=== PATIENT | male | born 1940 | race African-American/Black ===

== ENCOUNTER 2018-08-19 06:58 | Emergency (ER) | payer OTHER ==
[~2018-08-19] VITALS: Ht 177.8 cm; Wt 72.7 kg
[2018-08-19 08:14] VITALS: BP 140/84
[2018-08-19 08:34] LABS: APPEARANCE,URINE CLEAR (CLEAR); BILIRUBIN,URINE NEGATIVE (NEGATIVE); GLUCOSE, URINE (UA) NEGATIVE (NEGATIVE); KETONES,URINE NEGATIVE (NEGATIVE); LEUKOCYTE ESTERASE ,URINE NEGATIVE (NEGATIVE); NITRATE,URINE NEGATIVE (NEGATIVE); OCCULT BLOOD,URINE LARGE (NEGATIVE); PH,URINE 5.5 (5.0-8.0); PROTEIN,URINE NEGATIVE (NEGATIVE); UROBILINOGEN,URINE 0.2 mg/dL (<=1.0)
[2018-08-19 08:44] LABS: BACTERIA,URINE Rare /HPF (None Seen); SQUAMOUS EPITHELIAL CELL,UR Few /LPF (None Seen); WBC,URINE 0-2 /HPF (0-5)
== END 2018-08-19 09:12 | disposition home or self-care (01) ==
LOC: EMS 06:58
DX: R33.9 Retention of urine, unspecified (principal); F17.210 Nicotine dependence, cigarettes, uncomplicated
CPT/HCPCS: 51702

== ENCOUNTER 2018-08-24 10:46 | Emergency (ER) | payer OTHER ==
[~2018-08-24] VITALS: Ht 180.3 cm; Wt 77.3 kg
[2018-08-24 12:09] LABS: APPEARANCE,URINE CLOUDY (CLEAR); GLUCOSE, URINE (UA) NEGATIVE (NEGATIVE); KETONES,URINE TRACE mg/dL (NEGATIVE); LEUKOCYTE ESTERASE ,URINE SMALL (NEGATIVE); NITRATE,URINE NEGATIVE (NEGATIVE); OCCULT BLOOD,URINE LARGE (NEGATIVE); PROTEIN,URINE SEE CONFIRM (NEGATIVE)
[2018-08-24 12:11] LABS: BILIRUBIN,URINE PRELIM. POSITIVE (NEGATIVE)
[2018-08-24 12:13] LABS: SULFOSALICYLIC ACID,URINE 3+ (Negative)
[2018-08-24 12:14] LABS: BACTERIA,URINE None Seen /HPF (None Seen); RBC,URINE >100 /HPF (0-2); SQUAMOUS EPITHELIAL CELL,UR Few /LPF (None Seen)
[2018-08-24 12:16] LABS: BASOPHILS % (AUTO) 1.5 % (0.0-2.0); EOSINOPHILS % (AUTO) 3.5 % (1.0-6.0); HEMOGLOBIN 15.6 g/dL (13.5-17.5); LYMPHOCYTES # (AUTO) 1.3 K/uL (1.0-4.8); LYMPHOCYTES % (AUTO) 26.1 % (22.0-44.0); MEAN CORPUSCULAR HEMOGLOBIN 31.6 pg (26.0-34.0); MEAN CORPUSCULAR HGB CONC 33.9 G/dL (31.0-37.0); MEAN CORPUSCULAR VOLUME 93 fL (80-100); MONOCYTES # (AUTO) 0.4 K/uL (0.1-1.0); MONOCYTES % (AUTO) 7.3 % (2.0-9.0); NEUTROPHILS # (AUTO) 3.1 K/uL (1.8-7.7); NEUTROPHILS % (AUTO) 61.6 % (40.0-70.0); PLATELET COUNT (AUTO) 296 K/uL (150-450); RED BLOOD CELL COUNT(AUTO) 4.95 MIL/uL (4.50-5.90)
[2018-08-24] MEDS ORDERED: TraMADol HCL 50 MG TABLET PO ONE (12:30)
[2018-08-24 12:36] LABS: ANION GAP 5 mmol/L (8-16); CALCIUM, TOTAL 9.1 mg/dL (8.8-10.5); CARBON DIOXIDE 32 mmol/L (22-29); CHLORIDE 105 mmol/L (98-107); CREATININE 0.98 mg/dL (0.60-1.30); GLUCOSE,RANDOM 127 mg/dL (70-110); POTASSIUM 3.9 mmol/L (3.5-5.1); SODIUM SERUM 142 mmol/L (136-145); UREA NITROGEN, BLOOD 8 mg/dL (7-18)
[2018-08-24 12:37] LABS: GLOMERULAR FILTR. RATE CALC > 60 mL/min (>60)
[2018-08-24 12:39] LABS: ALANINE AMINOTRANSFERASE 22 U/L (12-78); ALBUMIN 3.3 g/dL (3.4-5.0); ALKALINE PHOSPHATASE 81 U/L (46-116); ASPARTATE AMINOTRANSFERASE 20 U/L (15-37); BILIRUBIN,TOTAL 0.5 mg/dL (0.1-1.0); TOTAL PROTEIN, SERUM 7.1 g/dL (6.4-8.2)
[2018-08-24 13:09] VITALS: BP 132/64
== END 2018-08-24 13:13 | disposition home or self-care (01) ==
LOC: EMS 10:47
DX: Z46.6 Encounter for fitting and adjustment of urinary device (principal); R33.9 Retention of urine, unspecified; F17.210 Nicotine dependence, cigarettes, uncomplicated

== ENCOUNTER 2020-10-18 03:42 | Emergency (ER) | payer OTHER ==
[~2020-10-18] VITALS: Ht 177.8 cm; Wt 70.5 kg
[2020-10-18] MEDS ORDERED: SODIUM CHLORIDE 0.9% 1,000 ML IV ONE ×2 (04:00→04:45)
[2020-10-18 04:05] LABS: BASOPHILS % (AUTO) 0.9 % (0.0-2.0); EOSINOPHILS % (AUTO) 1.5 % (1.0-6.0); HEMATOCRIT 45.7 % (41-53); HEMOGLOBIN 15.3 g/dL (13.5-17.5); LYMPHOCYTES # (AUTO) 2.8 K/uL (1.0-4.8); LYMPHOCYTES % (AUTO) 53.3 % (22.0-44.0); MEAN CORPUSCULAR HEMOGLOBIN 31.7 pg (26.0-34.0); MEAN CORPUSCULAR HGB CONC 33.5 G/dL (31.0-37.0); MEAN CORPUSCULAR VOLUME 95 fL (80-100); MONOCYTES # (AUTO) 0.3 K/uL (0.1-1.0); MONOCYTES % (AUTO) 6.3 % (2.0-9.0); PLATELET COUNT (AUTO) 282 K/uL (150-450); RED BLOOD CELL COUNT(AUTO) 4.83 MIL/uL (4.50-5.90); RED CELL DISTRIBUTION WIDTH 13.6 % (11.5-14.5)
[2020-10-18 04:15] LABS: ANION GAP 15 mmol/L (8-16); CALCIUM, TOTAL 9.7 mg/dL (8.8-10.5); CARBON DIOXIDE 21 mmol/L (22-29); CHLORIDE 103 mmol/L (98-107); CREATININE 1.21 mg/dL (0.60-1.30); GLUCOSE,RANDOM 121 mg/dL (70-110); POTASSIUM 3.6 mmol/L (3.5-5.1); SODIUM SERUM 139 mmol/L (136-145); UREA NITROGEN, BLOOD 17 mg/dL (7-18)
[2020-10-18 04:16] LABS: GLOMERULAR FILTR. RATE CALC > 60 mL/min (>60)
[2020-10-18 04:20] LABS: INR 1.1 (0.9-1.1); PROTHROMBIN TIME 11.5 SEC (9.4-11.6)
[2020-10-18 04:30] LABS: LACTIC ACID 7.4 mmol/L (0.4-2.0)
[2020-10-18 04:31] LABS: B-TYPE NATRIURETIC PEPTIDE 14 pg/mL (0-100)
[2020-10-18 04:40] LABS: ALANINE AMINOTRANSFERASE 21 U/L (12-78); ALBUMIN 3.8 g/dL (3.4-5.0); ALKALINE PHOSPHATASE 76 U/L (46-116); ASPARTATE AMINOTRANSFERASE 15 U/L (15-37); BILIRUBIN,TOTAL 0.5 mg/dL (0.1-1.0); CREATINE KINASE, TOTAL ONLY 171 U/L (39-308); TOTAL PROTEIN, SERUM 7.5 g/dL (6.4-8.2)
[2020-10-18 06:00] VITALS: BP 128/89
[2020-10-18 07:35] LABS: AMPHET/METH SCREEN,URINE NEGATIVE (NEGATIVE); BARBITURATE SCREEN, URINE NEGATIVE (NEGATIVE); BENZODIAZEPINES SCREEN,URINE NEGATIVE (NEGATIVE); CANNABINOID SCREEN,URINE NEGATIVE (NEGATIVE); COCAINE SCREEN,URINE POSITIVE (NEGATIVE); METHADONE SCREEN, URINE NEGATIVE (NEGATIVE); OPIATE SCREEN,URINE NEGATIVE (NEGATIVE)
[2020-10-18 07:39] LABS: PHENCYCLIDINE SCREEN,URINE NEGATIVE (NEGATIVE)
== END 2020-10-18 08:36 | disposition home or self-care (01) ==
LOC: EMS 03:47
DX: E87.2 Acidosis (principal); G40.909 Epilepsy, unspecified, not intractable, without status epilepticus; F17.210 Nicotine dependence, cigarettes, uncomplicated
CPT/HCPCS: 36415; 70450; 71045; 80053; 80307; 82550; 83605; 83880; 84484; 85025; 85610; 85730; 93005; 96360; 96361; 99291; G0480; J7030